=== PATIENT | male | born 1995 | race Caucasian/White ===

== ENCOUNTER 2021-11-15 12:29 | Emergency (ER) | payer OTHER ==
[~2021-11-15] VITALS: Ht 175.3 cm; Wt 77.8 kg
[2021-11-15] MEDS ORDERED: IBUP80TA PO (16:34)
[2021-11-15 16:40] VITALS: BP 134/68
== END 2021-11-15 16:41 | disposition home or self-care (01) ==
LOC: M ED 12:29
DX: H53.8 Other visual disturbances (principal); R11.2 Nausea with vomiting, unspecified; R20.2 Paresthesia of skin; H57.10 Ocular pain, unspecified eye; M54.2 Cervicalgia

== ENCOUNTER → 2023-12-12 | Outpatient (REF) ==
[~2023-12-12] MED LIST: IBUP80TA PO
== END ==
LOC: M PLAIMG 11:34
PROVIDERS: ATTEND Nurse Practitioner Family
DX: R52 Pain, unspecified (principal)